=== PATIENT | female | born 1995 | race Caucasian/White ===

== ENCOUNTER → 2017-02-06 | Outpatient (CLI) | payer BC ==
[~2017-02-06] MED LIST: ATR25 PO; FLUO10CA48 PO; FLUO20CA36 PO; HYDR25CA PO
[2017-02-06 18:35] LABS: URINE APPEARANCE CLOUDY (CLEAR); URINE BILIRUBIN NEG (NEG); URINE COLOR YELLOW; URINE EPITHELIAL CELL AUTO 20-30 /lpf (0-5); URINE NITRITE NEG (NEG); URINE PH 7.5 (4.5-7.5); URINE SPECIFIC GRAVITY 1.019 (1.000-1.030); UROBILINOGEN NEG (NEG)
[2017-02-06 18:42] LABS: MANUAL MICROSCOPIC REQUIRED? NO; REVIEW REQ? NO
== END | disposition home or self-care (01) ==
LOC: C.LABSPEC 18:10
PROVIDERS: ATTEND Obstetrics & Gynecology
DX: Z34.00 Encounter for supervision of normal first pregnancy, unspecified trimester (principal)

== ENCOUNTER → 2017-02-13 | Outpatient (CLI) | payer BC ==
[2017-02-13 17:39] LABS: BASO % 0.3 %; BASO ABS # 0.02 K/uL (0-0.2); COMPLETE YES; EOS % 0.7 %; HEMATOCRIT 37.5 % (37-47); IG% 0.3 %; LYMPH % 22.5 %; LYMPH ABS # 1.71 K/uL (1.2-3.4); MEAN CELL VOLUME 80.6 fL (80-100); MEAN CORPUSCULAR HGB CONC 34.7 g/dl (32-36); MEAN PLATELET VOLUME 9.8 fL (7.4-10.4); MONO % 5.3 %; NEUT % 70.9 %; PLATELET COUNT 216 K/uL (130-400); RED BLOOD COUNT 4.65 M/uL (4.2-5.4); WHITE BLOOD COUNT 7.61 K/uL (4.8-10.8)
== END | disposition home or self-care (01) ==
LOC: C.LAB1850 16:37
PROVIDERS: ATTEND Obstetrics & Gynecology
DX: Z34.00 Encounter for supervision of normal first pregnancy, unspecified trimester (principal)

== ENCOUNTER → 2017-02-13 | Outpatient (CLI) | payer BC | END | disposition home or self-care (01) | LOC: C.PAPS 10:45 | PROVIDERS: ATTEND Obstetrics & Gynecology | DX: Z34.01 Encounter for supervision of normal first pregnancy, first trimester (principal) ==

== ENCOUNTER → 2017-03-24 | Outpatient (CLI) | payer BC | END | disposition home or self-care (01) | LOC: C.LAB1850 08:26 | PROVIDERS: ATTEND Obstetrics & Gynecology | DX: O02.1 Missed abortion (principal) ==

== ENCOUNTER → 2017-03-29 | Outpatient (CLI) | payer BC ==
[2017-03-31 15:53] LABS: CHLAMYDIA TRACH RNA*** NOT DETECTED (NOT DETECTED); GC (NEIS GONORRHOEAE)RNA** NOT DETECTED (NOT DETECTED)
== END | disposition home or self-care (01) ==
LOC: C.LABSPEC 12:50
PROVIDERS: ATTEND Physician Assistant
DX: Z11.3 Encounter for screening for infections with a predominantly sexual mode of transmission (principal)

== ENCOUNTER 2017-04-12 05:26 | Inpatient (IN) | payer BC ==
[~2017-04-12] VITALS: Ht 162.6 cm; Wt 62.1 kg
--- NOTE | 2017-04-12 05:44 | EMERGENCY ROOM VISIT NOTE ---
History Report prepared by Jeremías: Shelia Mast Under the Supervision of: Dr. Ciro Vicente D.O. First contact with patient: 05:27 Chief Complaint: OVERDOSE (INTENTIONAL) Stated Complaint: OVERDOSE/MENTAL HEALTH History of Present Illness The patient is a 21 year old female who presents to the Emergency Room with complaints of an episode of an overdose four hours ago. The patient states that she took five over the counter sleeping pills and cut herself to try to kill herself. She states she did so because she is severely depressed. The patient states that she has a history of this behavior. She reports that the last time she cut was a few months ago. She denies every being in a psychiatric facility, drug abuse, and alcohol abuse. She states that she does see a psychiatrist regularly here in [place]. The patient also complains of nausea. Source of History: patient Onset: four hours ago Position: other (global) Quality: other (global) Timing: other (episode) Associated Symptoms: + nausea Review of Systems See HPI for pertinent positives and negatives. A total of ten systems were reviewed and were otherwise negative. Past Medical & Surgical Medical Problems: (1) Deliberate self-cutting (2) Insomnia Family History No pertinent family history Social History Alcohol Use: none Drug Use: none Marital Status: in relationship Housing Status: lives with significant other Current/Historical Medications Scheduled Fluoxetine (Prozac), 10 MG PO DAILY Scheduled PRN Hydroxyzine Pamoate (Vistaril), 1 DOSE PO UD PRN for Anxiety Allergies Coded Allergies: No Known Allergies (Unverified , 04/12/17) Physical Exam Vital Signs Date Time Temp Pulse Resp B/P (MAP) Pulse Ox O2 Delivery O2 Flow Rate FiO2 04/12/17 05:26 36.8 81 18 130/78 99 Room Air Physical Exam GENERAL: Awake, alert, well-appearing, in no distress HENT: Normocephalic, atraumatic. Oropharynx unremarkable. EYES: Normal conjunctiva. Sclera non-icteric. NECK: Supple. No nuchal rigidity. FROM. No JVD. RESPIRATORY: Clear to auscultation. CARDIAC: Regular rate, normal rhythm. Extremities warm and well perfused. Pulses equal. ABDOMEN: Soft, non-distended. No tenderness to palpation. No rebound or guarding. No masses. RECTAL: Deferred. MUSCULOSKELETAL: Chest examination reveals no tenderness. The back is symmetrical on inspection without obvious abnormality. There is no CVA tenderness to palpation. No joint edema. LOWER EXTREMITIES: Calves are equal size bilaterally and non-tender. No edema. No discoloration. NEURO: Normal sensorium. No sensory or motor deficits noted. SKIN: No rash or jaundice noted. Minor superficial abrasions to left flexor surface of the forearm. PSYCH: Depressed affect, admitted to suicidal ideation. Medical Decision & Procedures Laboratory Results 04/12/17 05:45 Red Blood Count 5.02, Mean Corpuscular Volume 81.3, Mean Corpuscular Hemoglobin 26.5, Mean Corpuscular Hemoglobin Concent 32.6, Mean Platelet Volume 9.5, Neutrophils (%) (Auto) 78.0, Lymphocytes (%) (Auto) 16.9, Monocytes (%) (Auto) 4.2, Eosinophils (%) (Auto) 0.4, Basophils (%) (Auto) 0.2, Neutrophils # (Auto) 7.92, Lymphocytes # (Auto) 1.72, Monocytes # (Auto) 0.43, Eosinophils # (Auto) 0.04, Basophils # (Auto) 0.02 04/12/17 05:45 Test 04/12/17 05:35 04/12/17 05:45 Urine Test NEG (NEG) Urine Opiates Screen NEG (NEG) Urine Methadone, Qualitative NEG (NEG) Urine Barbiturates NEG (NEG) Urine Phencyclidine (PCP) Level NEG (NEG) Ur Amphetamine/Methamphetamine NEG (NEG) MDMA (Ecstasy) Screen NEG (NEG) Urine Benzodiazepines Screen NEG (NEG) Urine Cocaine Metabolite NEG (NEG) Urine Marijuana (THC) NEG (NEG) White Blood Count 10.16 K/uL (4.8-10.8) Red Blood Count 5.02 M/uL (4.2-5.4) Hemoglobin 13.3 g/dL (12.0-16.0) Hematocrit 40.8 % (37-47) Mean Corpuscular Volume 81.3 fL (80-100) Mean Corpuscular Hemoglobin 26.5 pg (25-34) Mean Corpuscular Hemoglobin Concent 32.6 g/dl (32-36) Platelet Count 238 K/uL (130-400) Mean Platelet Volume 9.5 fL (7.4-10.4) Neutrophils (%) (Auto) 78.0 % Lymphocytes (%) (Auto) 16.9 % Monocytes (%) (Auto) 4.2 % Eosinophils (%) (Auto) 0.4 % Basophils (%) (Auto) 0.2 % Neutrophils # (Auto) 7.92 K/uL (1.4-6.5) Lymphocytes # (Auto) 1.72 K/uL (1.2-3.4) Monocytes # (Auto) 0.43 K/uL (0.11-0.59) Eosinophils # (Auto) 0.04 K/uL (0-0.5) Basophils # (Auto) 0.02 K/uL (0-0.2) RDW Standard Deviation 40.2 fL (36.4-46.3) RDW Coefficient of Variation 13.4 % (11.5-14.5) Immature Granulocyte % (Auto) 0.3 % Immature Granulocyte # (Auto) 0.03 K/uL (0.00-0.02) Anion Gap 7.0 mmol/L (3-11) Est Creatinine Clear Calc Drug Dose 109.8 ml/min Estimated GFR () 143.5 Estimated GFR (Non- 123.9 BUN/Creatinine Ratio 7.8 (10-20) Calcium Level 8.9 mg/dl (8.5-10.1) Aspartate Amino Transf (AST/SGOT) 12 U/L (15-37) Alanine Aminotransferase (ALT/SGPT) 16 U/L (12-78) Albumin 4.1 gm/dl (3.4-5.0) Ethyl Alcohol mg/dL < 3.0 mg/dl (0-3) Laboratory results reviewed by me ECG Indication: other (overdose) Rate (beats per minute): 66 Rhythm: normal sinus Findings: no acute ischemic change, other (normal interavals, normal axis) ED Course 0527: The patient was evaluated in room A2. A complete history and physical exam was performed. Medical Decision Medication Reconciliation: I attest that I have personally reviewed the patient' s current medication list. Blood pressure screening: Patient was found to have normal blood pressure on screening and does not require follow-up. Differential diagnosis: Etiologies such as mood disorder, depression, suicidal ideation, intentional overdose. Patient's EKG is within normal limits. There is no evidence of the patient have an anticholinergic her antihistamine toxicity at this time. Patient did speak to the outsole caser and will likely be admitted under a 201 for psychiatric evaluation Patient medically clear at 625am, will be assessed for admit by inpatient psychiatry. Impression Primary Impression: Suicidal ideation Additional Impression: Drug overdose, intentional Scribe Attestation The scribe's documentation has been prepared under my direction and personally reviewed by me in its entirety. I confirm that the note above accurately reflects all work, treatment, procedures, and medical decision making performed by me. Departure Information Dispostion Mental Health Acute Care Referrals No Doctor, Assigned (PCP) Patient Instructions My [facility] Problem Qualifiers
[2017-04-12] MEDS ORDERED: FLUO10CA48 PO (05:45)
[2017-04-12] MEDS ORDERED: HYDR25CA PO (05:46)
[2017-04-12 06:02] LABS: BASO % 0.2 %; BASO ABS # 0.02 K/uL (0-0.2); COMPLETE YES; EOS % 0.4 %; HEMATOCRIT 40.8 % (37-47); IG% 0.3 %; LYMPH % 16.9 %; LYMPH ABS # 1.72 K/uL (1.2-3.4); MEAN CELL VOLUME 81.3 fL (80-100); MEAN CORPUSCULAR HEMOGLOBIN 26.5 pg (25-34); MEAN CORPUSCULAR HGB CONC 32.6 g/dl (32-36); MEAN PLATELET VOLUME 9.5 fL (7.4-10.4); MONO % 4.2 %; PLATELET COUNT 238 K/uL (130-400); RED BLOOD COUNT 5.02 M/uL (4.2-5.4); WHITE BLOOD COUNT 10.16 K/uL (4.8-10.8)
[2017-04-12 06:16] LABS: BENZODIAZEPINE, URINE NEG (NEG); COCAINE,URINE NEG (NEG); PHENCYCLIDINE, URINE NEG (NEG)
[2017-04-12 06:20] LABS: BUN/CREATININE RATIO 7.8 (10-20); CALCIUM 8.9 mg/dl (8.5-10.1); CREATININE 0.7 mg/dl (0.60-1.20); POTASSIUM 3.7 mmol/L (3.5-5.1)
[2017-04-12 06:28] LABS: URINE APPEARANCE CLEAR (CLEAR); URINE BILIRUBIN NEG (NEG); URINE COLOR YELLOW; URINE NITRITE NEG (NEG); URINE SPECIFIC GRAVITY 1.007 (1.000-1.030); UROBILINOGEN NEG (NEG)
[2017-04-12 06:31] LABS: THYROID STIMULATING HORMONE 5.09 uIu/ml (0.300-4.500)
[2017-04-12 06:35] LABS: MANUAL MICROSCOPIC REQUIRED? NO; REVIEW REQ? NO
[2017-04-12] MEDS ORDERED: MAGNESIUM HYDROXIDE SUSP 30 ML UDC PO PRN (09:00)
[2017-04-12] MEDS ORDERED: BISMUTH SUBSALICYLATE PER ML OMNICELL CHARGE PO PRN (09:00)
[2017-04-12] MEDS ORDERED: SODIUM CHLORIDE 0.65% NA SOLN 45 ML (OCEAN) PRN (09:00)
[2017-04-12] MEDS ORDERED: hydrOXYzine HCL 25 MG TAB PO PRN (09:00)
[2017-04-12] MEDS ORDERED: ALUMINUM/MAGNESIUM SUSP 30 ML UDC PO PRN (09:00)
[2017-04-12] MEDS ORDERED: ACETAMINOPHEN 325 MG TAB PO PRN (09:00)
[2017-04-12 09:40] VITALS: O2SAT 97
[2017-04-12 10:32] VITALS: BP 110/74; PULSE 79; TEMP 37.1; Ht 162.6 cm; Wt 62.1 kg
[2017-04-12] MEDS ORDERED: FLUOXETINE HCL 20 MG CAP PO ONE (14:30)
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
--- NOTE | 2017-04-12 15:00 | EMERGENCY ROOM VISIT NOTE ---
ED Visit Note First contact with patient: 07:19 I received this patient in signout at the change of shift from Dr. Vicente pending mental health evaluation. The patient was evaluated and accepted by [facility] for voluntary inpatient treatment. Please see previous documentation for further detail on the history, physical and visit.
[2017-04-12] MEDS ORDERED: NURSING VERBAL MED ORDER ONE (20:45)
[2017-04-12] MEDS: GUAIFENESIN SUGAR FREE 100 MG/5 ML UDC PO PRN (20:55)
[2017-04-13 06:33] VITALS: BP_SYST 100; BP_SYST 110; BP_DIAS 60; BP_DIAS 70; PULSE 61; PULSE 76; TEMP 37
[2017-04-13] MEDS: FLUOXETINE HCL 20 MG CAP PO SCH (08:53)
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
[2017-04-13] MEDS: GUAIFENESIN SUGAR FREE 100 MG/5 ML UDC PO PRN (22:35)
[2017-04-14 06:50] VITALS: BP_SYST 100; BP_SYST 101; BP_DIAS 63; BP_DIAS 66; PULSE 57; PULSE 67; TEMP 37
[2017-04-14] MEDS ORDERED: NURSING VERBAL MED ORDER ONE (08:15)
[2017-04-14] MEDS: FLUOXETINE HCL 20 MG CAP PO SCH (09:13)
[2017-04-14] MEDS: COUGH DROP (SUGAR FREE) LOZ 24 LOZ/1 BOX PO PRN (11:44)
--- NOTE | 2017-04-14 16:42 | Psychiatric Progress Notes ---
Progress Note Date of Service Apr 14, 2017. Interval History 21 year old female admitted voluntarily after suicide attempt by overdose on Dramamine in the context of relationship problems with boyfriend. Patient was seen & assessed interval progress reviewed with Treatment Team. Staff reports the patient did well overnight. She continues to have some difficulty sleeping , circumstance which she attributes to the fact that she has always been a "light sleeper" and the unit is little noisy at night." She does feel that she is sleeping better. She reports good appetite. She says that her mood is "about a 6 out of 10" and that she has not had any suicidal thoughts. The current plan is for the patient to be discharged early next week. We focused on her goals for discharge today. These include her commitment to continue to take her medication (Prozac 20 mg daily) and resume psychotherapy. She is somewhat ambivalent about seeing her former psychiatrist, and would like to have a cartridge. However, the current plan is for her to go back to see her former psychiatrist for at least one visit. She also moved. To plan supportive psychotherapy. Patient acknowledges that she has had recurrent major depressive episodes since approximately the age of 15, I circumstance she said was partially precipitated by her parents marital difficulties. Reported process this part of her life and her ongoing angry feelings of her mother regarding the marital discord. She has several long-term goals. These include returning to school for the fall semester where she will continue to study psychology. Actively encourage the patient's strengths, which include her commitment to complete her education and career. We also reviewed her coping mechanisms and she identified her support network. She agrees that in the future should suicidal impulses develop she will access her coping skills and her sports. As above, the patient says that she feels better now that she has ended her relationship with her boyfriend and has come to terms with what happene in the relationship. She insists that she had never intended suicide and was fully aware of that the limited number of pills that she had taken were unlikely to have resulted in or even and serious impairment. She explains that she was hoping for attention from her boyfriend, and was looking for ways of expressing her distress. She realizes that this wasn't amateur coping mechanism and she expresses a commitment to avoid any similar behaviors in the future. Chief Complaint "Depression." The patient acknowledges taking an "overdose" of 4 tablets, and superficially cutting herself, but reports that she never had any suicidal ideation or intent.. Subjective Patient was seen & assessed interval progress reviewed with Treatment Team. Staff reports the patient did well overnight. She continues to have some difficulty sleeping, circumstance which she attributes to the fact that she has always been a "light sleeper" and the unit is little noisy at night." She does feel that she is sleeping better. She reports good appetite. She says that her mood is "about a 6 out of 10" and that she has not had any suicidal thoughts. The current plan is for the patient to be discharged early next week. We focused on her goals for discharge today. These include her commitment to continue to take her medication (Prozac 20 mg daily) and resume psychotherapy. She is somewhat ambivalent about seeing her former psychiatrist , and would like to have a cartridge. However, the current plan is for her to go back to see her former psychiatrist for at least one visit. She also moved. To plan supportive psychotherapy. Patient acknowledges that she has had recurrent major depressive episodes since approximately the age of 15, I circumstance she said was partially precipitated by her parents marital difficulties. Reported process this part of her life and her ongoing angry feelings of her mother regarding the marital discord. She has several long- term goals. These include returning to school for the fall where she will continue to study psychology. Actively encourage the patient's strengths, which include her commitment to complete her education and career. We also reviewed her coping mechanisms and she identified her support network. She agrees that in the future should suicidal impulses develop she will access her coping skills and her sports. As above, the patient says that she feels better now that she has ended her relationship with her boyfriend and has come to terms with what happene in the relationship. She insists that she had never intended suicide and was fully aware of that the limited number of pills that she had taken were unlikely to have resulted in or even and serious impairment. She explains that she was hoping for attention from her boyfriend, and was looking for ways of expressing her distress. She realizes that this wasn't amateur coping mechanism and she expresses a commitment to avoid any similar behaviors in the future. Review of Systems Constitutional: No fever, No chills, No sweats, No weight loss, No weakness, No fatigue, No problem reported ENT: No hearing loss, No unusual epistaxis, No nasal symptoms, No sore throat, No tinnitus, No dental problems, No trouble swallowing, No problem reported Respiratory: No cough, No sputum, No wheezing, No shortness of breath, No dyspnea on exertion, No dyspnea at rest, No hemoptysis, No problem reported Cardiovascular: No chest pain, No orthopnea, No PND, No edema, No claudication , No palpitations, No problem reported Abdomen: No pain, No nausea, No vomiting, No diarrhea, No constipation, No GI bleeding, No problem reported Musculoskeletal: No joint pain, No muscle pain, No swelling, No calf pain, No problem reported Neurologic: No memory loss, No paralysis, No weakness, No numbness/tingling, No vertigo, No balance problems, No problem reported Psychiatric: No depression symptoms, No anhedonism, No anxiety, No insomnia, No substance abuse, No problem reported Integumentary: + rash Sleep Information Total Hours of Sleep: 5.50 Patient describes intermittent insomnia, but attributes this to being "a light sleeper" within the context of the unfamiliar surroundings of the move and the noises that are made here during the night. She says that she typically falls back asleep very quickly after wakening and identifies difficulty sleeping as a hospital-related problem. Meal Information Percent of Breakfast Consumed: 100 Percent of Lunch Consumed: 80 Percent of Dinner Consumed: 90 Mental Status Exam During interview pt is: alert and oriented Appearance: appropriately dressed, disheveled Eye contact is: good Motor behavior is: steady gait & station, no abnormal motor movements Speech: normal in rate, rhythm & volume Affect: mood congruent (brighter than yesterdsay) Mood is: other (in the middle," and "better." She says that her mood is " about a 6 out of 10" today.) Thought process: linear, logical, clear, coherent Thought content: reality based without delusions Suicidal thought are: denied Homicidal thoughts are: denied Hallucinations: denies auditory, denies visual Cognition: memory grossly intact, attention grossly intact, language grossly intact Intelligence estimated to be: average Insight: good Judgement: good, impaired Impression Patient is a 21 year old female with recurrent depression and lacking in coping skills. She is admitted following an intentional overdose of Dramamine with the intention of harming herself and gaining the attention of her boyfriend. She was seen at [facility] for medication management but did not follow up with either and so with in the past 2-3 weeks she tried to reestablish care and was seen on April [address] Evans and started on Prozac 10 mg daily. Patient required inpatient care after suicide attempt and having very poor judgement (drove from [place] to [place]) after taking overdose as she is at risk of harm to herself. Plan (1) Suicidal ideation 04/12 Patient admitted to locked unit with q 15 minute safety checks 04/14 - patient has consistently denied any active suicidal ideation. She acknowledges that she did take an overdose of medication, but cites the limited number and insists that she was not serious and expecting test result. Instead , she says that she was vying for attention from her boyfriend. She is future oriented at this point and has identified several reasonable coping skills. (2) MDD (major depressive disorder), recurrent, severe, with psychosis 04/12 -Encourage participation in unit programming. Assist to develop coping skills. - Will need family meeting. -Reviewed risks/benefits and alternatives including black box chelsea for suicidal thinking with SSRI. Patient agrees to increase Prozac to 20 mg (has been taking 10 mg for a week. 04/13 Continue Prozac 20 mg Referral for therapy at [facility] is pending 04/14 the patient reports that her mood has improved. She says that on 10 mg of Prozac she noted some fluctuations in her mood, "up to "a little bit down." On Prozac 20 mg daily she says that she feels her mood has stabilized "in the middle," and she says that her current mood is about a 6 out of 10." (3) Insomnia 04/12 -vistaril at bedtime as needed. 04/14 - the patient continues to find hydroxyzine (Vistaril) to be an effective medication for sleep. She adds that she does not feel that decreased sleep as a typical problem for her when she is allowed to sleep in a familiar, quiet environment. (4) Eating disorder, unspecified -monitor patient's eating patterns. Continue to assess. Discharge / Aftercare Planning Primary Care Physician: Name: Dr. Garcia at [facility] Psychiatrist: Name: Dr. Evans--BRENDA Therapist: Name: [facility] Date of Appointment: Apr 19, 2017 Time of Appointment: 2:00 [place] Disintegrator: Name: none Home Health Services: Home Health Services: none Visit Code E&M Code: 89835 Inventory Assets Strengths: willingness for treatment, supportive parents Needs: outpatient therapist, coping skills. Risk Factors Assessment : Yes /single/: Yes Health problems: No Mental Health Diagnoses: Yes Previous attempt: Yes Family history of suicide: No Previous psychiatric stay: No Smoker: No Protective Factors Assessment Baptism beliefs: No : No Responsible for young children: No Employed: No Stable relationships: Yes Data Vital Signs Last 24 Hrs: Date Time Temp Pulse Resp B/P (MAP) Pulse Ox O2 Delivery O2 Flow Rate FiO2 04/14/17 06:50 37.0 57 16 100/63 67 101/66 Meds Administered Last 24 Hrs: Meds Administered (Past 24Hrs) Medications (Trade) Dose Ordered Sig/Yonatan Route Start Time Stop Time Status Last Admin Dose Admin Fluoxetine HCl (Prozac Cap) 20 mg QAM PO 04/13/17 09:00 05/13/17 08:59 04/14/17 09:13 20 MG Guaifenesin (Robitussin Sugar Free Syrup) 100 mg TID PRN PO 04/12/17 20:45 05/12/17 20:44 04/13/17 22:35 100 MG Menthol (Nice Mario) 1 mario PRN PRN PO 04/14/17 08:45 05/14/17 08:44 04/14/17 11:44 1 MARIO
[2017-04-14] MEDS: GUAIFENESIN SUGAR FREE 100 MG/5 ML UDC PO PRN (20:21)
[2017-04-14] MEDS: hydrOXYzine HCL 25 MG TAB PO PRN (22:11)
[2017-04-15 06:52] VITALS: BP_SYST 109; BP_SYST 112; BP_DIAS 71; BP_DIAS 76; PULSE 58; PULSE 6; TEMP 36.8
[2017-04-15] MEDS: GUAIFENESIN SUGAR FREE 100 MG/5 ML UDC PO PRN (09:12)
[2017-04-15] MEDS: FLUOXETINE HCL 20 MG CAP PO SCH (09:12)
--- NOTE | 2017-04-15 11:07 | Psychiatric Progress Notes ---
Progress Note Date of Service Apr 15, 2017. Interval History 21 year old female admitted voluntarily after suicide attempt by overdose on Dramamine in the context of relationship problems with boyfriend. Patient was seen & assessed interval progress reviewed with Treatment Team. Staff reports the patient did well overnight. She continues to have some difficulty sleeping , circumstance which she attributes to the fact that she has always been a "light sleeper" and the unit is little noisy at night." She does feel that she is sleeping better. She reports good appetite. She says that her mood is "about a 6 out of 10" and that she has not had any suicidal thoughts. The current plan is for the patient to be discharged early next week. We focused on her goals for discharge today. These include her commitment to continue to take her medication (Prozac 20 mg daily) and resume psychotherapy. She is somewhat ambivalent about seeing her former psychiatrist, and would like to have a cartridge. However, the current plan is for her to go back to see her former psychiatrist for at least one visit. She also moved. To plan supportive psychotherapy. Patient acknowledges that she has had recurrent major depressive episodes since approximately the age of 15, I circumstance she said was partially precipitated by her parents marital difficulties. Reported process this part of her life and her ongoing angry feelings of her mother regarding the marital discord. She has several long-term goals. These include returning to school for the fall semester where she will continue to study psychology. Actively encourage the patient's strengths, which include her commitment to complete her education and career. We also reviewed her coping mechanisms and she identified her support network. She agrees that in the future should suicidal impulses develop she will access her coping skills and her sports. As above, the patient says that she feels better now that she has ended her relationship with her boyfriend and has come to terms with what happene in the relationship. She insists that she had never intended suicide and was fully aware of that the limited number of pills that she had taken were unlikely to have resulted in or even and serious impairment. She explains that she was hoping for attention from her boyfriend, and was looking for ways of expressing her distress. She realizes that this wasn't amateur coping mechanism and she expresses a commitment to avoid any similar behaviors in the future. Chief Complaint "Feeling good". Subjective Patient was seen & assessed interval progress reviewed with Treatment Team. Patient reports that her mood continues to gradually improve. Tolerating medication without any significant side effects. Feeling more hopeful. Mother and father have both been very supportive and patient plans to live with father after discharge. Has appointment with Dr. Evans scheduled for 05/30/17 but prefers to move this forward and then consider returning back to [facility] for follow up. Outpatient therapy referral underway but no appointment as of yet. Denies thoughts to harm self or others. Feeling more hopeful. Review of Systems Psych: denies symptoms other than stated above Constitutional: denied Cardiovascular: denied GI: denied Neurologic: denied Remainder of 10 body systems also reviewed and denied other than noted above. Sleep Information Total Hours of Sleep: 6.50 Meal Information Percent of Breakfast Consumed: 100 Percent of Lunch Consumed: 80 Percent of Dinner Consumed: 70 Mental Status Exam During interview pt is: alert and oriented Appearance: appropriately dressed, appropriately groomed Eye contact is: good Motor behavior is: steady gait & station, no abnormal motor movements Speech: normal in rate, rhythm & volume Affect: mood congruent (brighter than yesterdsay) Mood is: other (in the middle," and "better." She says that her mood is " about a 6 out of 10" today.) Thought process: linear, logical, clear, coherent Thought content: reality based without delusions Suicidal thought are: denied Homicidal thoughts are: denied Hallucinations: denies auditory, denies visual Cognition: memory grossly intact, attention grossly intact, language grossly intact Intelligence estimated to be: average Insight: good Judgement: good, impaired Impression Patient is a 21 year old female with recurrent depression and lacking in coping skills. She is admitted following an intentional overdose of Dramamine with the intention of harming herself and gaining the attention of her boyfriend. She was seen at [facility] for medication management but did not follow up with either and so with in the past 2-3 weeks she tried to reestablish care and was seen on April [address] Evans and started on Prozac 10 mg daily. Patient required inpatient care after suicide attempt and having very poor judgement (drove from [place] to [place]) after taking overdose as she is at risk of harm to herself. Plan (1) Suicidal ideation 04/12 Patient admitted to locked unit with q 15 minute safety checks 04/14 - patient has consistently denied any active suicidal ideation. She acknowledges that she did take an overdose of medication, but cites the limited number and insists that she was not serious and expecting test result. Instead , she says that she was vying for attention from her boyfriend. She is future oriented at this point and has identified several reasonable coping skills. (2) MDD (major depressive disorder), recurrent, severe, with psychosis 04/12 -Encourage participation in unit programming. Assist to develop coping skills. - Will need family meeting. -Reviewed risks/benefits and alternatives including black box chelsea for suicidal thinking with SSRI. Patient agrees to increase Prozac to 20 mg (has been taking 10 mg for a week. 04/13 Continue Prozac 20 mg Referral for therapy at [facility] is pending 04/14 the patient reports that her mood has improved. She says that on 10 mg of Prozac she noted some fluctuations in her mood, "up to "a little bit down." On Prozac 20 mg daily she says that she feels her mood has stabilized "in the middle," and she says that her current mood is about a 6 out of 10. 04/15 -Mood continues to improve and patient feeling more hopeful. Tolerating Prozac well. Will attempt to move psychiatric aftercare appointment forward as it is currently May 30 and outpatient therapy appointment set for April 19. (3) Insomnia 04/12 -vistaril at bedtime as needed. 04/14 - the patient continues to find hydroxyzine (Vistaril) to be an effective medication for sleep. She adds that she does not feel that decreased sleep as a typical problem for her when she is allowed to sleep in a familiar, quiet environment. (4) Eating disorder, unspecified -monitor patient's eating patterns. Continue to assess. Discharge / Aftercare Planning Primary Care Physician: Name: Dr. Garcia at [facility] Psychiatrist: Name: Dr. Evans--BRENDA Appointment Notes: BRENDA with the office Therapist: Name: Fay [facility] Date of Appointment: Apr 19, 2017 Time of Appointment: 2:00 Appointment Notes: [place] office [employer]: Name: none Home Health Services: Home Health Services: none Visit Code E&M Code: 47812 Inventory Assets Strengths: willingness for treatment, supportive parents Needs: outpatient therapist, coping skills. Risk Factors Assessment : Yes /single/: Yes Health problems: No Mental Health Diagnoses: Yes Previous attempt: Yes Family history of suicide: No Previous psychiatric stay: No Smoker: No Protective Factors Assessment Congregation beliefs: No : No Responsible for young children: No Employed: No Stable relationships: Yes Data Vital Signs Last 24 Hrs: Date Time Temp Pulse Resp B/P (MAP) Pulse Ox O2 Delivery O2 Flow Rate FiO2 04/15/17 06:52 36.8 58 16 112/71 6 109/76 Meds Administered Last 24 Hrs: Meds Administered (Past 24Hrs) Medications (Trade) Dose Ordered Sig/Yonatan Route Start Time Stop Time Status Last Admin Dose Admin Menthol (Nice Jaci) 1 jaci PRN PRN PO 04/14/17 08:45 05/14/17 08:44 04/14/17 11:44 1 JACI
[2017-04-16 06:45] VITALS: BP_SYST 104; BP_SYST 108; BP_DIAS 71; BP_DIAS 73; PULSE 59; PULSE 67; TEMP 36.9
[2017-04-16] MEDS: FLUOXETINE HCL 20 MG CAP PO SCH (08:34)
[2017-04-16] MEDS: GUAIFENESIN SUGAR FREE 100 MG/5 ML UDC PO PRN (14:10)
--- NOTE | 2017-04-16 15:13 | Psychiatric Progress Notes ---
Progress Note Date of Service Apr 16, 2017. Interval History 21 year old female admitted voluntarily after suicide attempt by overdose on Dramamine in the context of relationship problems with boyfriend. Patient was seen & assessed interval progress reviewed with Treatment Team. Staff reports the patient did well overnight. She continues to have some difficulty sleeping , circumstance which she attributes to the fact that she has always been a "light sleeper" and the unit is little noisy at night." She does feel that she is sleeping better. She reports good appetite. She says that her mood is "about a 6 out of 10" and that she has not had any suicidal thoughts. The current plan is for the patient to be discharged early next week. We focused on her goals for discharge today. These include her commitment to continue to take her medication (Prozac 20 mg daily) and resume psychotherapy. She is somewhat ambivalent about seeing her former psychiatrist, and would like to have a cartridge. However, the current plan is for her to go back to see her former psychiatrist for at least one visit. She also moved. To plan supportive psychotherapy. Patient acknowledges that she has had recurrent major depressive episodes since approximately the age of 15, I circumstance she said was partially precipitated by her parents marital difficulties. Reported process this part of her life and her ongoing angry feelings of her mother regarding the marital discord. She has several long-term goals. These include returning to school for the fall semester where she will continue to study psychology. Actively encourage the patient's strengths, which include her commitment to complete her education and career. We also reviewed her coping mechanisms and she identified her support network. She agrees that in the future should suicidal impulses develop she will access her coping skills and her sports. As above, the patient says that she feels better now that she has ended her relationship with her boyfriend and has come to terms with what happene in the relationship. She insists that she had never intended suicide and was fully aware of that the limited number of pills that she had taken were unlikely to have resulted in or even and serious impairment. She explains that she was hoping for attention from her boyfriend, and was looking for ways of expressing her distress. She realizes that this wasn't amateur coping mechanism and she expresses a commitment to avoid any similar behaviors in the future. Chief Complaint "Mood is better". Subjective Patient was seen & assessed interval progress reviewed with Treatment Team. Patient reports that she has continued to feel less depressed and more hopeful. Had a visit with her sister, mother and father and this went well. She plans to return to live with her father. Tolerating medications well. Feels relieved to have relationship with exboyfriend behind her and has not had any contact from him. Review of Systems Psych: denies symptoms other than stated above Constitutional: denied Cardiovascular: denied GI: denied Neurologic: denied Remainder of 10 body systems also reviewed and denied other than noted above. Sleep Information Total Hours of Sleep: 6.50 Meal Information Percent of Breakfast Consumed: 60 Percent of Lunch Consumed: 90 Percent of Dinner Consumed: 100 Mental Status Exam During interview pt is: alert and oriented Appearance: appropriately dressed, appropriately groomed Eye contact is: good Motor behavior is: steady gait & station, no abnormal motor movements Speech: normal in rate, rhythm & volume Affect: mood congruent (brighter than yesterdsay) Mood is: other (in the middle," and "better." She says that her mood is " about a 6 out of 10" today.) Thought process: linear, logical, clear, coherent Thought content: reality based without delusions Suicidal thought are: denied Homicidal thoughts are: denied Hallucinations: denies auditory, denies visual Cognition: memory grossly intact, attention grossly intact, language grossly intact Intelligence estimated to be: average Insight: good Judgement: good, impaired Impression Patient is a 21 year old female with recurrent depression and lacking in coping skills. She is admitted following an intentional overdose of Dramamine with the intention of harming herself and gaining the attention of her boyfriend. She was seen at [facility] for medication management but did not follow up with either and so with in the past 2-3 weeks she tried to reestablish care and was seen on April [address] Evans and started on Prozac 10 mg daily. Patient required inpatient care after suicide attempt and having very poor judgement (drove from [place] to [place]) after taking overdose as she is at risk of harm to herself. Plan (1) Suicidal ideation 04/12 Patient admitted to locked unit with q 15 minute safety checks 04/14 - patient has consistently denied any active suicidal ideation. She acknowledges that she did take an overdose of medication, but cites the limited number and insists that she was not serious and expecting test result. Instead , she says that she was vying for attention from her boyfriend. She is future oriented at this point and has identified several reasonable coping skills. (2) MDD (major depressive disorder), recurrent, severe, with psychosis 04/12 -Encourage participation in unit programming. Assist to develop coping skills. - Will need family meeting. -Reviewed risks/benefits and alternatives including black box chelsea for suicidal thinking with SSRI. Patient agrees to increase Prozac to 20 mg (has been taking 10 mg for a week. 04/13 Continue Prozac 20 mg Referral for therapy at [facility] is pending 04/14 the patient reports that her mood has improved. She says that on 10 mg of Prozac she noted some fluctuations in her mood, "up to "a little bit down." On Prozac 20 mg daily she says that she feels her mood has stabilized "in the middle," and she says that her current mood is about a 6 out of 10. 04/15 -Mood continues to improve and patient feeling more hopeful. Tolerating Prozac well. Will attempt to move psychiatric aftercare appointment forward as it is currently May 30 and outpatient therapy appointment set for April 19. (3) Insomnia 04/12 -vistaril at bedtime as needed. 04/14 - the patient continues to find hydroxyzine (Vistaril) to be an effective medication for sleep. She adds that she does not feel that decreased sleep as a typical problem for her when she is allowed to sleep in a familiar, quiet environment. (4) Eating disorder, unspecified -monitor patient's eating patterns. Continue to assess. Discharge / Aftercare Planning Primary Care Physician: Name: Dr. Garcia at [facility] Psychiatrist: Name: Dr. Evans--BRENDA Appointment Notes: BRENDA with the office Therapist: Name: Fay [facility] Date of Appointment: Apr 19, 2017 Time of Appointment: 2:00 Appointment Notes: [place] office [place]: Name: none Home Health Services: Home Health Services: none Visit Code E&M Code: 01303 Inventory Assets Strengths: willingness for treatment, supportive parents Needs: outpatient therapist, coping skills. Risk Factors Assessment : Yes /single/: Yes Health problems: No Mental Health Diagnoses: Yes Previous attempt: Yes Family history of suicide: No Previous psychiatric stay: No Smoker: No Protective Factors Assessment Taoist beliefs: No : No Responsible for young children: No Employed: No Stable relationships: Yes Data Vital Signs Last 24 Hrs: Date Time Temp Pulse Resp B/P (MAP) Pulse Ox O2 Delivery O2 Flow Rate FiO2 04/16/17 06:45 36.9 59 16 108/71 67 104/73
[2017-04-16] MEDS: hydrOXYzine HCL 25 MG TAB PO PRN (21:26)
[2017-04-17 06:55] VITALS: BP_SYST 103; BP_SYST 109; BP_DIAS 68; BP_DIAS 76; PULSE 56; PULSE 66; TEMP 36.5
[2017-04-17] MEDS: FLUOXETINE HCL 20 MG CAP PO SCH (08:54)
[2017-04-17] MEDS: COUGH DROP (SUGAR FREE) LOZ 24 LOZ/1 BOX PO PRN (09:24)
[2017-04-17] MEDS ORDERED: FLUO20CA36 PO (12:23)
[2017-04-17] MEDS ORDERED: ATR25 PO (12:49)
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
== END 2017-04-17 14:00 | disposition home or self-care (01) | DRG 885 ==
LOC: C.EDA 05:26 → EDBD 05:26 → C.MHU 09:12 → ENRESERV 11:12 → CMPBEDREQ 13:40 → C.MHU 04-16 14:37
PROVIDERS: ADMIT Psychiatry & Neurology Psychiatry; ATTEND Psychiatry & Neurology Psychiatry
DX: F33.2 Major depressive disorder, recurrent severe without psychotic features (principal); R45.851 Suicidal ideations; T45.0X2A Poisoning by antiallergic and antiemetic drugs, intentional self-harm, initial encounter; S61.512A Laceration without foreign body of left wrist, initial encounter; S61.511A Laceration without foreign body of right wrist, initial encounter; X78.8XXA Intentional self-harm by other sharp object, initial encounter; F50.9 Eating disorder, unspecified; G47.00 Insomnia, unspecified; Z63.9 Problem related to primary support group, unspecified; Z91.5 Personal history of self-harm; Z91.410 Personal history of adult physical and sexual abuse; Z79.899 Other long term (current) drug therapy